=== PATIENT | female | born 1970 | race Caucasian/White ===

== ENCOUNTER → 2017-12-03 10:40 | Outpatient (POV) | payer BC, SELFPAY | PROVIDERS: Visit Provider Dermatology | DX: Z00.00 Encounter for general adult medical examination without abnormal findings (principal) ==

== ENCOUNTER 2019-08-24 19:10 | Emergency (ER) | payer BC, SELFPAY ==
[2019-08-24 19:11] VITALS: BP 167/100; PULSE 108; RESP 16; TEMP 37.2; O2SAT 99; BMI 25.8
--- NOTE | 2019-08-24 19:41 | CT_ITS ---
PROCEDURE: CT HEAD/BRAIN WO CON CLINICAL INDICATION: cold/ tingling in LT shoulder to arm Numbness and tingling in the left side of the head COMPARISON: No exams were available for comparison TECHNIQUE: Axial images obtained. All CT scans at the facility use one or more dose reduction, viz: automated exposure control, ma/kV adjustment per patient size (including targeted exams where dose is matched to indication, i.e. head), or iterative reconstruction technique. FINDINGS: No midline shift, mass effect, intracranial hemorrhage, hydrocephalus, or extra-axial fluid collection is evident. The calvarium has an unremarkable appearance. There is some mild opacification of the left mastoid sinus there is mucosal thickening in the ethmoid sinuses IMPRESSION: 1. No acute intracranial findings. 2. Mild sinus disease Dictated by: Ceferino Hung MD 08/25/2019 07:55 Electronically signed by Ceferino Hung MD in [place] 08/25/2019 07:55
--- NOTE | 2019-08-24 19:41 | CT_ITS ---
PROCEDURE: CT CERVICAL SPINE WO CON CLINICAL INDICATION: cold/ tingling in LT shoulder to arm Left upper extremity numbness and tingling COMPARISON: No exams were available for comparison TECHNIQUE: Axial images obtained with sagittal and coronal reformats. All CT scans at the facility use one or more dose reduction, viz: automated exposure control, ma/kV adjustment per patient size (including targeted exams where dose is matched to indication, i.e. head), or iterative reconstruction technique. Axial spiral CT scanning performed of the cervical spine beginning at the base of the skull and continuing to the upper T-spine. 3-D multiplanar reconstruction with 3-D manipulation of volumetric data set in image rendering was completed by the radiologist and/or technologist with the supervision of the radiologist on independent workstation. FINDINGS: Normal alignment. No acute fracture or dislocation. C2-C3: Unremarkable. C3-C4: Unremarkable. C4-C5: Unremarkable. C5-C6: Mild degenerative disc disease with minimal uncovertebral hypertrophy and mild bilateral foraminal narrowing. C6-C7: Degenerative disc disease with endplate hypertrophic change eccentric toward the left with left lateral recess narrowing and severe left-sided foraminal narrowing. There is borderline narrowing of the canal at this level at 11 mm. C7-T1: Unremarkable. Lung apices show a indeterminate 6 mm nodule in the right apex IMPRESSION: 1. No acute finding. 2. C5-C6: Mild degenerative disc disease with minimal uncovertebral hypertrophy and mild bilateral foraminal narrowing. 3. C6-C7: Degenerative disc disease with endplate hypertrophic change eccentric toward the left with left lateral recess narrowing and severe left-sided foraminal narrowing. There is borderline narrowing of the canal at this level at 11 mm 4. Indeterminate 6 mm right apical nodule Dictated by: Ceferino Hung MD 08/25/2019 07:59 Electronically signed by Ceferino Hung MD in [place] 08/25/2019 07:59
[2019-08-24 19:46] LABS: Microscopic, Urine URINE MICROSCOPIC (MICROSCOPIC)
--- NOTE | 2019-08-24 19:47 | XR_ITS ---
PROCEDURE: XR CHEST 2V CLINICAL HISTORY: numbeness in left arm Smoker COMPARISON: No exams were available for comparison FINDINGS: The cardiomediastinal silhouette and pulmonary vascularity are within normal limits. No lobar consolidation or collapse. There is an ill-defined opacity in the left perihilar region measuring approximately 1.9 cm. The remaining lungs are clear No acute bony abnormalities. IMPRESSION: Indeterminate left perihilar opacity. Cannot exclude developing nodule. Follow-up suggested. CT may provide further evaluation. Dictated by: Ceferino Hung MD 08/25/2019 07:24 Electronically signed by Ceferino Hung MD in [facility] 08/25/2019 07:24
[2019-08-24 19:48] LABS: Appearance,Urine CLEAR (Clear); Bilirubin,Urine Negative (Negative); Blood, Urine Negative (Negative); Color,Urine YELLOW (Yellow); Glucose,Urine (UA) Negative (Negative); Ketones,Urine Negative (Negative); Leukocyte Esterase,Urine Negative (Negative); Nitrate,Urine Negative (Negative); Protein,Urine Negative (Negative); Specific Gravity, Urine <= 1.005 (1.005-1.030); Urobilinogen,Urine 0.2 EU/dl (0.2)
[2019-08-24 19:54] LABS: Basophils # 0.1 K/mm3 (0-0.2); Basophils % 0.8 % (0.1-2.0); Eosinophils # 0.3 K/mm3 (0.0-0.4); Eosinophils % 2.7 % (0.1-12.0); Hematocrit 47.1 % (37.0-47.0); Hemoglobin 16.1 g/dL (12.2-16.2); Lymphocytes # 3.4 K/mm3 (0.7-4.5); Lymphocytes % 35.8 % (10-50); Mean Corpuscular HGB Conc 34.2 g/dL (31.8-35.4); Mean Corpuscular Hemoglobin 32.9 pg (27.0-31.2); Mean Corpuscular Volume 96.2 fl (81-99); Mean Platelet Volume 7.1 fl (7.4-10.4); Monocytes # 0.4 K/mm3 (0.1-1.0); Monocytes % 4.4 % (1.7-9.3); Neutrophils # 5.4 K/mm3 (1.8-7.8); Neutrophils % 56.4 % (37.0-80.0); Platelet Count 316 K/mm3 (142-424); Red Blood Count 4.89 M/mm3 (4.20-5.40); Red Cell Distribution Width 13.5 % (11.5-17.5); Urine Pregnancy, HCG Qual. Negative (Negative); White Blood Count 9.6 K/mm3 (4.8-10.8)
[2019-08-24 20:02] LABS: Chloride 102 mmol/L (98-107)
[2019-08-24 20:03] LABS: Potassium 3.7 mmoL/L (3.5-5.1); Sodium 138 mmol/L (136-145)
[2019-08-24 20:05] LABS: Alanine Aminotransferase 18 U/L (12-78); Aspartate Amino Transferase 33 U/L (14-36); Blood Urea Nitrogen 5 mg/dl (7-17); Creatinine Clearance Estimated 99 mL/min (50-200); Estimated Glomerular Filt Rate 77 ml/min (>60); GFR (African American) 93 ML/MIN (>60)
[2019-08-24 20:06] LABS: Albumin Level 4.5 g/dl (3.5-5.0); Albumin/Globulin Ratio 1.4 (1.1-1.8); Alkaline Phosphatase 80 U/L (38-126); Anion Gap 10.7 mEq/L (5-15); Bilirubin,Total 0.6 mg/dl (0.2-1.3); Calcium 9.6 mg/dl (8.4-10.2); Carbon Dioxide 29 mmol/L (22.0-30.0); Globulin 3.2 g/dL (1.3-3.2); Glucose 88 mg/dl (74-100); Total Protein,Serum 7.7 g/dl (6.3-8.2)
[2019-08-24 20:29] LABS: Bacteria,Urine Trace /lpf; WBC,Urine Occasional #/hpf (0-3)
[2019-08-24 20:37] LABS: Thyroid Stimulating Hormone 4.37 uIU/mL (0.465-4.68)
[2019-08-24 20:52] LABS: Troponin I < 0.01 ng/ml (0.00-0.034)
--- NOTE | 2019-08-24 20:53 | HMH.EDNEU ---
ED Disposition Clinical Impression: Cervical disc disease, Jordana's disease Disposition: Home, Self-Care Condition on Discharge: Good Instructions: Degenerative Disc Disease Additional Instructions: call pcp for close follow up Referrals: Lyndon Weaver [Primary Care Provider] - - Critical Care Critical Care Time: No Attestation: On 08/24/19, the high probability of a clinically significant, sudden or life threatening deterioration of the following system(s) required my full and direct attention, intervention and personal management. The time I documented below is in addition to time spent performing reported procedures but includes the following listed in this critical care notation. Medical Decision Making - Medical Records Medical records reviewed: Yes: I reviewed the patient's medical records. - Andrea Inquiry Pt receiving controlled substance: No Vital Signs: 08/24/19 19:11 Temperature 98.9 F Temperature Source Oral Pulse Rate [Left Radial] 108 H Respiratory Rate 16 Blood Pressure [Right Arm] 167/100 H Blood Pressure Mean [Right Arm] 122 Blood Pressure Source [Right Arm] Automatic Cuff Blood Pressure Position [Right Arm] Sitting 02 Sat by Pulse Oximetry 99 Oxygen Delivery Method Room Air - Lab Data Lab results reviewed: Yes: I reviewed the patient's lab results. Lab Results 08/24/19 19:20: Troponin I < 0.01 08/24/19 19:27: Urine Color Yellow, Urine Appearance Clear, Urine pH 7.0, Ur Specific [place] <= 1.005, Urine Protein Negative, Urine Glucose (UA) Negative, Urine Ketones Negative, Urine Blood Negative, Urine Nitrate Negative, Urine Bilirubin Negative, Urine Urobilinogen 0.2, Ur Leukocyte Esterase Negative, Urine WBC Occasional, Ur Squamous Epith Cells 3-5, Urine Bacteria Trace 08/24/19 19:27: WBC 9.6, RBC 4.89, Hgb 16.1, Hct 47.1 H, MCV 96.2, MCH 32.9 H, MCHC 34.2, RDW 13.5, Plt Count 316, MPV 7.1 L, Neut % (Auto) 56.4, Lymph % (Auto) 35.8, [place] % (Auto) 4.4, Eos % (Auto) 2.7, Baso % (Auto) 0.8, Neut # (Auto) 5.4, Lymph # (Auto) 3.4, [place] # (Auto) 0.4, Eos # (Auto) 0.3, Baso # (Auto) 0.1 08/24/19 19:27: Urine HCG, Qual Negative 08/24/19 19:27: Sodium 138, Potassium 3.7, Chloride 102, Carbon Dioxide 29, Anion Gap 10.7, BUN 5 L, Creatinine 0.80, Estimated Creat Clear 99, Estimated GFR 77, Est GFR ( Amer) 93, Glucose 88, Calcium 9.6, Total Bilirubin 0.6, AST 33, ALT 18, Alkaline Phosphatase 80, Total Protein 7.7, Albumin 4.5, Globulin 3.2, Albumin/Globulin Ratio 1.4, TSH 4.37, Thyroxine (T4) 8.0 Result diagrams: 08/24/19 19:27 08/24/19 19:27 Orders (Tests/Meds): ED MEDICATIONS Discontinued Medications Generic Name Dose Route Start Last Admin Trade Name Freq PRN Reason Stop Dose Admin Methylprednisolone Sodium Succinate 125 mg 08/24/19 21:01 Solu-Medrol 125mg/2ml Vial IV 08/24/19 21:02 ONCE ONE ORDERS Category Date Time Status CT cervical spine wo con Stat Cat Scan 08/24/19 19:[address] head/brain wo con Stat Cat Scan 08/24/19 19:41 Taken XR chest 2V Stat Exams 08/24/19 19:47 Taken TPO [Thyroid Peroxidase Antibodies] Stat Lab 08/24/19 20:59 Ordered Troponin I Q3H Lab 08/24/19 23:00 Ordered Troponin I Q3H Lab 08/25/19 02:00 Ordered - Radiology Data #1 Image(s): Chest Image Reviewed: Yes I reviewed the patient's radiology image Preliminary Findings: Normal/NAD - CT Data CT Scan: Head, C-Spine Time Received: 21:[address] Reviewed: Yes: I have viewed the radiologist's interpretation Preliminary Findings: Abnormal (see report ) - Reevaluation(s) Time: 21:09 Reevaluation #1: stable exam Neuro HPI - General Chief Complaint: Neuro Symptoms/Deficit Stated Complaint: NUMBNESS LEFT ARM.VERGO Time Seen by Provider: 08/24/19 20:00 Mode of Arrival: Ambulatory Source of Information: Patient, Medical Record Limitations: No Limitations Description of Symptoms (Recalled from ER Triage Doc. by RN): pt stated she has had a cold/tingli
[2019-08-24 21:23] VITALS: BP 154/82; PULSE 92; RESP 14; TEMP 37.2; O2SAT 98
[2019-08-26 20:32] LABS: Thyroid Peroxidase Antibodies 132 IU/mL (0-34)
== END 2019-08-24 21:25 | disposition home or self-care (01) ==
PROVIDERS: Emergency Medicine; Emergency Provider Emergency Medicine; PCP Family Medicine
DX: M50.30 Other cervical disc degeneration, unspecified cervical region (principal); E06.3 Autoimmune thyroiditis; F17.210 Nicotine dependence, cigarettes, uncomplicated
CPT/HCPCS: 70450; 71046; 72125; 80053; 81001; 81025; 84436; 84443; 84484; 85025; 86376; 96365; 96374; 99283

== ENCOUNTER 2020-02-25 16:50 | Emergency (ER) | payer BC, SELFPAY ==
[2020-02-25 17:04] VITALS: BP 143/91; PULSE 86; RESP 19; TEMP 36.6; O2SAT 98; BMI 26.3
--- NOTE | 2020-02-25 17:12 | HMH.EDUTC ---
[facility] [place] Disposition Clinical Impression: Exposure to COVID-19 virus Disposition: Home, Self-Care Condition on Discharge: Good Instructions: Preventing the Spread of Coronavirus Discharge Instructions Additional Instructions: *Monitor Temp, Over the counter Motrin or Tylenol as directed/as needed Tylenol every 4 hours and Motrin every 6 hours (as long as your family doctor has told you that you can take it) for fever or pain. and straight to ER if unable to lower temp less than 101.0 after medication given *Warm salt water gargles may help to soothe the throat *Throat Lozenges *Warm fluids like tea with honey may help to soothe the throat *Sleep elevated *Humidifier/Vaporizer *Flonase 2 sprays in each nostril daily but be aware that it may take 2-3 days before you notice improvement Follow up IMMEDIATELY for new or worsening symptoms or no Noticeable improvement over the next 48-72 hours. 911 for difficulty breathing or swallowing You was tested for today for COVID19 your test result should be back in the next 24-48 hours, you may call to the [facility] later today or tomorrow to see if your test results are back and the result [phone] [facility] hours are 9am-9pm You was given a handout with instructions for Self Quarantine and Self isolation for while you wait on test results and what to do if they are positive If you are positive the Health Dept will be contacting you also Referrals: Lyndon Weaver [Primary Care Provider] - As needed Forms: Work/School Release Time of Disposition: 17:15 Medical Decision Making - Andrea Inquiry Pt receiving controlled substance: No Andrea was queried for this patient: No Vital Signs: 02/25/20 17:04 Temperature 97.8 F Temperature Source Oral Pulse Rate [Radial] 86 Respiratory Rate 19 Blood Pressure [Right Arm] 143/91 H Blood Pressure Mean [Right Arm] 108 Blood Pressure Source [Right Arm] Automatic Cuff Blood Pressure Position [Right Arm] Sitting 02 Sat by Pulse Oximetry 98 Oxygen Delivery Method Room Air Orders (Tests/Meds): ORDERS Category Date Time Status Covid-19 Nasal PCR ([facility]) Routine Lab 02/25/20 17:00 Received [facility] HPI - General Stated complaint: Covid test Time Seen by Provider: 11/28/20 17:12 Mode of Arrival: Ambulatory Source of Information: Patient Limitations: No Limitations Description of Symptoms (Recalled from Triage Doc. by RN): covid test HEENT Symptoms (Recalled from RN notes): No Resp Symptoms (Recalled from RN notes): No Skin Symptoms (Recalled from RN notes): No MS Symptoms (Recalled from RN notes): No Functional Status (Recalled from RN notes): wnl - History of Present Illness Provider Complaint: Patient states that she was recently around coworker that just tested positive for COVID States that she isnt having any symtpoms but wants to get tested to check to see if she may have it now due to exposure - Related Data Home Medications Medication Instructions Recorded Confirmed No Known Home Medications 08/24/19 08/24/19 Allergies Allergy/AdvReac Type Severity Reaction Status Date / Time No Known Allergies Allergy Verified 08/24/19 19:40 - Worker's Comp Is this a Worker's Comp case?: No H History - Hepatitis A Screen Drug use history?: No High risk sexual behaviors?: No History of sexually transmitted infection?: No Currently employed?: No Childcare worker?: No Do you have indoor plumbing?: Yes Do you have electricity?: Yes Attestation statement:: This patient has been screened for Hepatitis A risk factors. I have reviewed the patient's past medical history: Yes Laterality Cases: Bilateral: Tonsillectomy - Social History Smoking Status: Current every day smoker # Packs/Day (cigarettes): 1 Alcohol Intake: never Occupational Status: employed ROS Obtained: Yes All systems reviewed & no additional complaints, Yes Systems reviewed as appropriate & no additional complaints - Constitutional Constitutional:
[2020-02-25 17:33] VITALS: BP 143/91; PULSE 86; RESP 19; TEMP 36.6; O2SAT 98
== END 2020-02-25 17:34 | disposition home or self-care (01) ==
PROVIDERS: Emergency Provider Nurse Practitioner; PCP Family Medicine
DX: Z20.828 Contact with and (suspected) exposure to other viral communicable diseases (principal); F17.210 Nicotine dependence, cigarettes, uncomplicated
CPT/HCPCS: 99201; U0003

== ENCOUNTER 2020-04-09 10:51 | Emergency (ER) | payer BC, SELFPAY ==
[2020-04-09 11:15] VITALS: BP 131/83; PULSE 87; RESP 14; TEMP 36.5; O2SAT 98; BMI 25.8
--- NOTE | 2020-04-09 11:55 | HMH.EDUTC ---
[facility] [place] Clinical Impression: Exposure to COVID-19 virus Disposition: Home, Self-Care Condition on Discharge: Good Instructions: DI for COVID-19 (Suspected or Confirmed ), Preventing the Spread of Coronavirus Discharge Instructions Additional Instructions: Drink plenty of fluids. Take tylenol for pain or fever. Return if you begin to have difficulty breathing. Follow up with your regular doctor. GO TO THE ER FOR ANY WORSENING SYMPTOMS Referrals: Lyndon Weaver [Primary Care Provider] - Time of Disposition: 11:58 Medical Decision Making - Medical Records Medical records reviewed: No: I reviewed the patient's medical records. - Andrea Inquiry Pt receiving controlled substance: No Vital Signs: 04/09/20 11:15 04/09/20 12:00 Temperature 97.7 F 97.7 F Temperature Source Oral Pulse Rate 87 Pulse Rate [Left Brachial] 87 Respiratory Rate 14 14 Blood Pressure 131/83 Blood Pressure [Left Arm] 131/83 Blood Pressure Mean [Left Arm] 99 Blood Pressure Source [Left Arm] Automatic Cuff Blood Pressure Position [Left Arm] Sitting 02 Sat by Pulse Oximetry 98 Oxygen Delivery Method Room Air Orders (Tests/Meds): ORDERS Category Date Time Status Covid-19 Nasal PCR ([facility]) Routine Lab 04/09/20 11:20 [place] [facility] [place] - General Stated complaint: covid test for work Time Seen by Provider: 04/09/20 11:55 Mode of Arrival: Ambulatory Source of Information: Patient Limitations: No Limitations Description of Symptoms (Recalled from Triage Doc. by RN): COVID TEST D/T EXPOSURE. DENIES SYMPTOMS HEENT Symptoms (Recalled from RN notes): No Resp Symptoms (Recalled from RN notes): No Skin Symptoms (Recalled from RN notes): No MS Symptoms (Recalled from RN notes): No Functional Status (Recalled from RN notes): WNL - History of Present Illness Provider Complaint: She is here to have a covid test done. She denies any symptoms. - Related Data Home Medications Medication Instructions Recorded Confirmed No Known Home Medications 08/24/19 08/24/19 Allergies Allergy/AdvReac Type Severity Reaction Status Date / Time No Known Allergies Allergy Verified 08/24/19 19:40 - Worker's Comp Is this a Worker's Comp case?: No [facility] History - Hepatitis A Screen Drug use history?: No High risk sexual behaviors?: No History of sexually transmitted infection?: No Currently employed?: No Childcare worker?: No Do you have indoor plumbing?: Yes Do you have electricity?: Yes Attestation statement:: This patient has been screened for Hepatitis A risk factors. I have reviewed the patient's past medical history: Yes Laterality Cases: Bilateral: Myringotomy (Ear Tubes), Tonsillectomy - Social History Smoking Status: Current every day smoker # Packs/Day (cigarettes): 1 Alcohol Intake: never Occupational Status: other ROS Obtained: Yes All systems reviewed & no additional complaints - Constitutional Constitutional: Reports system reviewed and no additional complaints, except as docu - Eyes Eyes: Reports system reviewed and no additional complaints, except as docu - ENT Ears, Nose, Mouth, and Throat: Reports system reviewed and no additional complaints, except as docu - Cardiovascular Cardiovascular: Reports system reviewed and no additional complaints, except as docu - Respiratory Respiratory: Reports system reviewed and no additional complaints, except as docu - Gastrointestinal Gastrointestingal: Reports: system reviewed and no additional complaints, except as docu Physical Exam - General General appearance: alert, in no apparent distress - Head Head exam: atraumatic, normocephalic, normal inspection - Eye Eye exam: Present: normal appearance, PERRL, EOMI - ENT ENT exam: Present: normal exam, normal oropharynx, mucous membranes moist, TM's normal bilaterally, normal external ear exam - Neck Neck exam: Present: normal inspection, full ROM, trachea midline. Ab
[2020-04-09 12:00] VITALS: BP 131/83; PULSE 87; RESP 14; TEMP 36.5; O2SAT 98
== END 2020-04-09 12:02 | disposition home or self-care (01) ==
PROVIDERS: Emergency Provider Nurse Practitioner Family; PCP Family Medicine
DX: Z20.822 Contact with and (suspected) exposure to COVID-19 (principal)
CPT/HCPCS: 99202; G0463; U0003

== ENCOUNTER → 2020-12-28 20:30 | Outpatient (CLI) | payer BC, SELFPAY | PROVIDERS: Visit Provider Nurse Practitioner Family | DX: Z20.822 Contact with and (suspected) exposure to COVID-19 (principal) | CPT/HCPCS: C9803; U0003; U0005 ==

== ENCOUNTER → 2021-01-22 19:57 | Outpatient (CLI) | payer BC, SELFPAY | PROVIDERS: Visit Provider Nurse Practitioner Family | DX: Z20.822 Contact with and (suspected) exposure to COVID-19 (principal) | CPT/HCPCS: C9803; U0003; U0005 ==

== ENCOUNTER → 2021-05-01 10:46 | Outpatient (CLI) | payer BC, SELFPAY ==
[2021-05-02 09:29] LABS: Covid-19 Nasal PCR Sendout Lex NOT DETECTED
== END ==
PROVIDERS: Visit Provider Nurse Practitioner
DX: Z20.822 Contact with and (suspected) exposure to COVID-19 (principal)
CPT/HCPCS: C9803; U0004; U0005

== ENCOUNTER 2021-11-13 12:42 | Emergency (ER) | payer BC, SELFPAY ==
[2021-11-13 13:16] VITALS: BP 150/102; PULSE 96; RESP 17; TEMP 36.7; O2SAT 98; BMI 26.6
--- NOTE | 2021-11-13 13:21 | HMH.EDUTC ---
[facility] [place] [facility] [place] Clinical Impression: Sinusitis, Otitis Disposition: Home, Self-Care Condition on Discharge: Good Instructions: DI for Sinusitis Additional Instructions: Drink plenty of fluids. Take tylenol or ibuprofen for pain or fever. Take the medications as directed. Follow up with your regular doctor. GO TO THE ER FOR ANY WORSENING SYMPTOMS Prescriptions: methylPREDNISolone [Medrol] 4 mg PO DIRECTED 6 Days #21 packet Transmission Status: Received by [facility] # Azithromycin [Z-Jeramy 250mg Tab*] 250 mg PO UD DOSE PK #6 tab Transmission Status: Received by [facility] # Referrals: Lyndon Weaver [Primary Care Provider] - Time of Disposition: 13:39 Medical Decision Making - Medical Records Medical records reviewed: No: I reviewed the patient's medical records. - Andrea Inquiry Pt receiving controlled substance: No Vital Signs: 11/13/21 13:16 11/13/21 13:45 Temperature 98.0 F 98.0 F Temperature Source Temporal Artery Scan Pulse Rate 96 H Pulse Rate [Left] 96 H Respiratory Rate 17 17 Blood Pressure 150/102 H Blood Pressure [Right Arm] 150/102 H Blood Pressure Mean [Right Arm] 118 02 Sat by Pulse Oximetry 98 - Lab Data Lab results reviewed: Yes: I reviewed the patient's lab results. [facility] [place] [facility] [place]PI - General Stated complaint: ear pain Time Seen by Provider: 11/13/21 13:21 Mode of Arrival: Ambulatory Source of Information: Patient Limitations: No Limitations Description of Symptoms (Recalled from Triage Doc. by RN): patient comes in with complaits of fluid on both ears, headache, nausea. symptoms began yesterday. patient thinks all symptoms are realted to sinus drainage HEENT Symptoms (Recalled from RN notes): Yes Resp Symptoms (Recalled from RN notes): No Skin Symptoms (Recalled from RN notes): No MS Symptoms (Recalled from RN notes): No Functional Status (Recalled from RN notes): n/a - History of Present Illness Provider Complaint: She is here with complaints of sinus congestion and sinus drainage for the past 2 days. - Related Data Previous Rx's Medication Instructions Recorded Azithromycin [Z-Jeramy 250mg Tab*] 250 mg PO UD DOSE PK #6 tab 11/13/21 methylPREDNISolone [Medrol] 4 mg PO DIRECTED 6 Days #21 11/13/21 packet Allergies Allergy/AdvReac Type Severity Reaction Status Date / Time No Known Allergies Allergy Verified 11/13/21 13:20 - Worker's Comp Is this a Worker's Comp case?: No [facility] History - Hepatitis A Screen Attestation statement:: This patient has been screened for Hepatitis A risk factors. I have reviewed the patient's past medical history: Yes Other Medical History: Reports: Thyroid Disease Laterality Cases: Bilateral: Myringotomy (Ear Tubes), Tonsillectomy - Social History Smoking Status: Current every day smoker # Packs/Day (cigarettes): 1 Alcohol Intake: never Occupational Status: other Family Hx:: Non-contributory ROS Obtained: Yes All systems reviewed & no additional complaints - Constitutional Constitutional: Reports as per HPI - Eyes Eyes: Denies eye discharge - ENT Ears, Nose, Mouth, and Throat: Reports as per HPI - Cardiovascular Cardiovascular: Denies chest pain - Respiratory Respiratory: Reports cough Physical Exam - General General appearance: alert, in no apparent distress - Head Head exam: atraumatic, normocephalic, normal inspection - Eye Eye exam: Present: normal appearance, PERRL, EOMI - ENT ENT exam: Present: normal exam, normal oropharynx, mucous membranes moist, TM's normal bilaterally, normal external ear exam - Neck Neck exam: Present: normal inspection, full ROM, trachea midline. Absent: meningismus, lymphadenopathy - Chest Chest inspection: Present: normal inspection, symmetric chest wall rise. Absent: tenderness - Respiratory Respiratory exam: Present: normal lung sounds bilaterally. Absent: respiratory distress - Cardiovascula
[2021-11-13 13:45] VITALS: BP 150/102; PULSE 96; RESP 17; TEMP 36.7
== END 2021-11-13 13:45 | disposition home or self-care (01) ==
PROVIDERS: Emergency Provider Nurse Practitioner Family; PCP Family Medicine
DX: J32.9 Chronic sinusitis, unspecified (principal); H66.90 Otitis media, unspecified, unspecified ear
CPT/HCPCS: 99212; G0463

== ENCOUNTER 2022-11-09 12:26 | Emergency (ER) | payer MEDICARE, SELFPAY ==
[2022-11-09 12:37] VITALS: BP 165/101; PULSE 109; RESP 18; TEMP 36.7; O2SAT 98; BMI 26.6
--- NOTE | 2022-11-09 13:04 | HMH.EDGENADL ---
Discharge Plan Disposition Patient Disposition: Home, Self-Care Condition: Good Prescriptions Prescriptions: No Action atorvastatin 40 mg tablet 40 mg PO DAILY levothyroxine 50 mcg tablet 50 mcg PO DAILY pantoprazole 40 mg tablet,delayed release (DR/EC) 40 mg PO DAILY Referrals Follow up/Referrals: Lyndon Weaver [Primary Care Provider] - See instructions Activity Restrictions/Add. Instructions Additional Instructions/Restrictions: Please follow-up with your primary care provider. Please return to the emergency department if you develop any new or worsening symptoms or become concerned for your health. As we discussed, plan to follow-up with your primary care provider to discuss possible MRI imaging. Recommend that you return to the emergency department should you have any severe chest pain, shortness of breath or difficulty breathing. Clinical Impressions Clinical Impression: Numbness and tingling, Right arm weakness Discharge ED Provider: Huan Delgado Adult HPI General Chief complaint: Extremity Problem,Nontraumatic Stated complaint: jaw pain,arms tingling Time Seen by Provider: 11/09/22 13:01 Mode of Arrival: Ambulatory Limitations: No Limitations Description of Symptoms (Recalled from ER Triage Doc. by RN): Pt. states she has bilateral arm numbness and tingling that radiaites into her jaw since yesterday. She states she has had some periods of nausea as well. History of Present Illness HPI narrative: Patient is a 52-year-old female with history of hypothyroidism, hyperlipidemia presenting to the emergency department with multiple complaints including 1 day history of subjective weakness in the right upper extremity, new numbness and tingling in the left upper extremity as well as the left jaw. History was conducted with the patient at bedside. Patient reports that she has been symptomatic in the right upper extremity for the past year, states that she has had subjective weakness. Initially felt that she had carpal tunnel, although she does not work at a desk or with computers. Patient states she feels weak when she is gripping things. She has also had some intermittent numbness and tingling of the right upper extremity. In the left upper extremity, patient has now had new onset numbness and tingling of the left forearm as well as the left jaw that is new today. She denies any chest pain, shortness of breath or difficulty breathing, nausea, vomiting. Denies any recent falls, injuries. She denies any significant history of neck pain. Denies abdominal pain, nausea, vomiting. Patient states that she does have a significant family history of cardiac disease, which is why she wanted to be evaluated in the emergency department today. Related Data Home Medications Medication Instructions Recorded Confirmed atorvastatin 40 mg tablet 40 mg PO DAILY Cholesterol 11/09/22 11/09/22 levothyroxine 50 mcg tablet 50 mcg PO DAILY Supplement 11/09/22 11/09/22 pantoprazole 40 mg tablet,delayed 40 mg PO DAILY gerd 11/09/22 11/09/22 release Allergies Allergy/AdvReac Type Severity Reaction Status Date / Time No Known Allergies Allergy Verified 11/09/22 12:[address] [facility] Disclaimer: The information contained in this section may have been updated after the patient was seen, as this information can be updated by other users. Medical History (Updated 11/09/22 @ 16:07 by Galo Minor MD) Dilation of esophagus GERD (gastroesophageal reflux disease) Hyperlipemia Hypothyroid Surgical History (Updated 11/09/22 @ 12:36 by Helena Jenkins RN) H/O unilateral oophorectomy History of esophagogastroduodenoscopy (EGD) Family History (Updated 11/09/22 @ 12:36 by Helena Jenkins RN) Other No significant family history Social History (Updated 11/09/22 @ 12:36 by Helena Jenkins RN) Smoking Status: Current every day smoker alcohol intake: current current occupational status: othe
[2022-11-09 13:10] LABS: Basophils % 0.4 % (0.1-2.0); Eosinophils # 0.1 K/mm3 (0.0-0.4); Eosinophils % 1.5 % (0.1-12.0); Hematocrit 45.5 % (37.0-47.0); Hemoglobin 14.4 g/dL (12.2-16.2); Lymphocytes # 1.9 K/mm3 (0.7-4.5); Lymphocytes % 23.6 % (10-50); Mean Corpuscular HGB Conc 31.6 g/dL (31.8-35.4); Mean Corpuscular Volume 95.1 fl (81-99); Mean Platelet Volume 7.8 fl (7.4-10.4); Monocytes # 0.4 K/mm3 (0.1-1.0); Monocytes % 4.6 % (1.7-9.3); Neutrophils # 5.8 K/mm3 (1.8-7.8); Neutrophils % 69.9 % (37.0-80.0); Platelet Count 271 K/mm3 (142-424); Red Blood Count 4.78 M/mm3 (4.20-5.40); Red Cell Distribution Width 14.2 % (11.5-17.5); White Blood Count 8.2 K/mm3 (4.8-10.8)
[2022-11-09 13:15] LABS: Alanine Aminotransferase 23 U/L (12-78); Albumin Level 4.2 g/dl (3.5-5.0); Albumin/Globulin Ratio 1.3 (1.1-1.8); Alkaline Phosphatase 78 U/L (38-126); Aspartate Amino Transferase 28 U/L (14-36); Bilirubin,Total 0.4 mg/dl (0.2-1.3); Blood Urea Nitrogen 12 mg/dl (7-17); Carbon Dioxide 25 mmol/L (22.0-30.0); Chloride 106 mmol/L (98-107); Creatinine Clearance Estimated 111 mL/min (50-200); Estimated Glomerular Filt Rate 88 ml/min (>60); GFR (African American) 106 ML/MIN (>60); Globulin 3.2 g/dL (1.3-3.2); Glucose 132 mg/dl (74-100); Sodium 139 mmol/L (136-145); Total Protein,Serum 7.4 g/dl (6.3-8.2)
[2022-11-09 13:27] LABS: Troponin I < 0.01 ng/ml (0.00-0.034)
--- NOTE | 2022-11-09 13:28 | ECG_ITS ---
APPROVED REPORT Exam: Resting ECG HR:92 bpm ECG Measurements Heart Rate 92 AXES TX 138 P 62 QRSd 80 QRS 20 QT 360 T 43 QTc 409 Conclusion SINUS RHYTHM POSSIBLE LEFT ATRIAL ENLARGEMENT [-0.1mV P-WAVE IN V1/V2] LOW QRS VOLTAGE IN PRECORDIAL LEADS [QRS DEFLECTION < 1.0 mV IN CHEST LEADS] POSSIBLE RIGHT VENTRICULAR CONDUCTION DELAY [RSR (QR) IN V1/V2] SEPTAL MYOCARDIAL INFARCTION , OF INDETERMINATE AGE [40+ ms Q WAVE IN V1/V2] ABNORMAL ECG UNCONFIRMED REPORT Electronically signed by : Kyle Hernandes MD 11/10/2022 14:01:59
[2022-11-09 13:30] VITALS: BP 133/81; PULSE 87; RESP 18; O2SAT 97
--- NOTE | 2022-11-09 13:35 | PC.NURSE ---
Rounded on patient; nothing needed at this time. Call wells within reach of patient
[2022-11-09 14:00] VITALS: BP 120/79; PULSE 81; RESP 19; O2SAT 96
[2022-11-09 14:30] VITALS: BP 123/82; PULSE 74; RESP 17; O2SAT 96
[2022-11-09 15:00] VITALS: BP 128/74; PULSE 79; RESP 18; O2SAT 95
[2022-11-09 15:40] LABS: Troponin I < 0.01 ng/ml (0.00-0.034)
--- NOTE | 2022-11-09 15:52 | PC.NURSE ---
Rounded on patient, patient requesting a drink MD notified drink provided to patient. Call wells within reach of patient
[2022-11-09 16:13] VITALS: BP 139/90; PULSE 89; RESP 16; TEMP 36.6; O2SAT 95
== END 2022-11-09 16:15 | disposition home or self-care (01) ==
PROVIDERS: Emergency Medicine; Emergency Provider Emergency Medicine; PCP Family Medicine
DX: R53.1 Weakness (principal); R20.0 Anesthesia of skin; R20.2 Paresthesia of skin; E03.9 Hypothyroidism, unspecified; E78.5 Hyperlipidemia, unspecified; K21.9 Gastro-esophageal reflux disease without esophagitis; F17.200 Nicotine dependence, unspecified, uncomplicated
CPT/HCPCS: 80053; 82330; 84484; 85025; 93005; 99285

== ENCOUNTER 2024-09-02 13:59 | Outpatient (CLI) | payer BC, SELFPAY ==
[2024-09-02 13:07] LABS: Basophils # 0.1 K/mm3 (0-0.2); Basophils % 1.1 % (0.1-2.0); Eosinophils # 0.5 Kmm3 (0.0-0.4); Eosinophils % 6.9 % (0.1-12.0); Hematocrit 40.6 % (37.0-47.0); Hemoglobin 12.7 g/dL (12.2-16.2); Immature Granulocytes # 0.02 10^3uL; Immature Granulocytes % 0.3 %; Lymphocytes # 2.1 K/mm3 (0.7-4.5); Lymphocytes % 28.8 % (10-50); Mean Corpuscular HGB Conc 31.3 g/dL (31.8-35.4); Mean Corpuscular Hemoglobin 27.5 pg (27.0-31.2); Mean Corpuscular Volume 88.1 fl (81-99); Monocytes # 0.5 K/mm3 (0.1-1.0); Monocytes % 6.3 % (1.7-9.3); Neutrophils # 4.2 K/mm3 (1.8-7.8); Neutrophils % 56.6 % (37.0-80.0); Nucleated Red Blood Cells # 0 10^3/uL; Nucleated Red Blood Cells % 0 %; Platelet Count 315 K/mm3 (142-424); Red Blood Count 4.61 M/mm3 (4.20-5.40); Red Cell Distribution Width 17.7 % (11.5-17.5); Red Cell Distribution Width-SD 56.4 fL; White Blood Count 7.4 K/mm3 (4.8-10.8)
[2024-09-02 13:27] LABS: Alanine Aminotransferase 23 U/L (12-78); Albumin Level 4.1 g/dl (3.5-5.0); Albumin/Globulin Ratio 1.6 (1.1-1.8); Alkaline Phosphatase 84 U/L (38-126); Anion Gap 9.2 mEq/L (5-15); Aspartate Amino Transferase 27 U/L (14-36); Bilirubin,Total 0.5 mg/dl (0.2-1.3); Blood Urea Nitrogen 5 mg/dl (7-17); Calcium 8.9 mg/dl (8.4-10.2); Carbon Dioxide 27 mmol/L (22.0-30.0); Chloride 107 mmol/L (98-107); Chol/HDL Ratio 2.8 (1-3.5); Cholesterol 151 mg/dl (140-200); Estimated Glomerular Filt Rate 75 ml/min (>60); GFR (African American) 91 ML/MIN (>60); Globulin 2.5 g/dL (1.3-3.2); Glucose 72 mg/dl (74-100); HDL Cholesterol 53 mg/dl (40-60); Potassium 5.2 mmoL/L (3.5-5.1); Sodium 138 mmol/L (136-145); Total Protein,Serum 6.6 g/dl (6.3-8.2); Triglycerides 105 mg/dl (30-150); VLDL Cholesterol 21 mg/dL (0-40)
[2024-09-02 13:38] LABS: Direct LDL Cholesterol 68.19 mg/dL (100-129)
[2024-09-02 13:52] LABS: Free T4 (Free Thyroxine) 1.09 ng/dl (0.78-2.19)
[2024-09-02 13:58] LABS: Thyroid Stimulating Hormone 2.71 uIU/mL (0.465-4.68)
[2024-09-02 17:50] LABS: Hemoglobin A1C 5.3 % (4.0-6.0)
[2024-09-02 19:32] LABS: HIV Combo NEGATIVE (Negative)
[2024-09-02 19:40] LABS: Hepatitis C Ab Qual. W/ RFX NEGATIVE (Negative)
[2024-09-03 08:16] LABS: Thyroid Peroxidase Antibodies 136 IU/mL (0-34)
== END 2024-09-02 23:59 | disposition home or self-care (01) ==
LOC: LAB.DROPOF 14:00
PROVIDERS: PCP Internal Medicine; Visit Provider Internal Medicine
DX: Z00.00 Encounter for general adult medical examination without abnormal findings (principal); Z13.29 Encounter for screening for other suspected endocrine disorder; Z13.220 Encounter for screening for lipoid disorders; Z11.4 Encounter for screening for human immunodeficiency virus [HIV]; Z13.1 Encounter for screening for diabetes mellitus; Z11.59 Encounter for screening for other viral diseases; E06.3 Autoimmune thyroiditis
CPT/HCPCS: 80053; 80061; 83036; 84439; 84443; 85025; 86376; 86803; 87389

== ENCOUNTER 2024-09-16 07:20 | Outpatient (CLI) | payer OTHER, SELFPAY ==
--- NOTE | 2024-09-16 07:30 | CT_ITS ---
FINAL REPORT TECHNIQUE: Thin section axial images were obtained through the lungs using a low-dose technique per lung cancer screening protocol. Reconstruction images were obtained using the axial data. Exam was performed using dose reduction technique. CLINICAL HISTORY: lung cancer screening smoker, 1 ppd x 27 years FINDINGS: CTDL vol: 2.90 DLP: 103.68 Lungs: There is a 3 mm subpleural left upper lobe nodule well-seen on series 4, image 16. There is a 4 mm right apical nodule well-seen on image 13. There is evidence of old granulomatous disease. Lymph nodes: No thoracic lymphadenopathy. Mediastinum: Heart size is normal. Prominent coronary artery calcification is identified. Pleura/pericardium: No pleural or pericardial effusion. Other: No acute abnormality in the upper abdomen. IMPRESSION: Bilateral pulmonary nodules. Modifier S: Prominent coronary artery calcification. Lung RADS: 2S Recommendation: Recommend low dose chest CT in 12 months. Reviewed, Interpreted and Dictated by Shanna Raman MD Transcribed by Hannah Pérez Authenticated and [facility]
== END 2024-09-16 23:59 | disposition home or self-care (01) ==
LOC: RAD 07:21
PROVIDERS: PCP Internal Medicine; Visit Provider Internal Medicine
DX: I25.10 Atherosclerotic heart disease of native coronary artery without angina pectoris (principal); R91.8 Other nonspecific abnormal finding of lung field; F17.209 Nicotine dependence, unspecified, with unspecified nicotine-induced disorders; Z12.2 Encounter for screening for malignant neoplasm of respiratory organs
CPT/HCPCS: 71271

== ENCOUNTER 2025-02-21 12:41 | Outpatient (RCR) | payer OTHER, SELFPAY ==
--- NOTE | 2025-02-21 15:33 | [facility].PTOPEV ---
PT Evaluation Rehab PT Outpatient Evaluation Start: 02/21/25 12:52 Freq: Status: Active Protocol: Document 02/21/25 12:52 WALTER (Rec: 02/21/25 15:17 WALTER [id number]) E-signed By Ingris Painter, PT Outpatient Therapy Subjective History Subjective History This is an initial PT evaluation for 54 y/o, Melodie Sousa, who presents to PT with referral for cervical pain with radiculopathy. Pt reports her neck pain started back in 2019 but was primarily on the left side . Pt now has been having R-sided neck pain and RUE burning for ~ 2 months. Pt reports she has an area of intermittent numbness in her neck down to right shoulder and burning sensation that radiates from her neck to her wrist. Pt denies any n/v, b/b dysfunction, saddle anesthesia, dizziness, BLE/BUE weakness, or diplopia. Pt's pain is worse at night when sleeping, when first waking up, and when looking down. Pt reports she works at a [employer] and wishes to seek education on how to improve her work ergonomics to prevent neck pain. Pt denies any recent accident/injury leading to her neck pain. Pt finds relief from her symptoms when using anti-inflammatory medication, stretching, being active, and using heat. Chief complaint: Right sided neck pain with RUE radiculopathy. Occupation: Office job at computer. Imaging: No recent cervical imaging performed. Pt had a cervical CT in 2019 that showed degenerative cervical spine disease with end plate hypertrophic changes, left lateral recess narrowing, and severe left-sided foraminal narrowing. New diagnosis of No cancer in past 12 months? Chief Complaint Pain,Paresthesia Symptom Type Ache,Burning,Numbness,Tingling,Shooting Symptoms Relieved By Heat,Prescription Meds,Activity Symptoms Aggravated Supine,Sitting By Prior Functional None Limitations Current Functional Reaching,Desk Work/Reading,Sleeping,Standing,Sitting Limitations Symptom Description Constant but Variable Level of pain today 4 (0-10) Pain scale - at its 3 best (0-10) Pain scale - at its 8 worst (0-10) Cervical Eval Palpation Cervical Muscles R Cervical Paraspinal,R Suboccipital,R Upper Trapezius, L Upper Trapezius,R Thoracic Paraspinals,L Thoracic Paraspinals Cervical/Thoracic Tenderness,Muscle Guarding Palpation Findings Posture Head/C-Spine Posture Neutral Position Sitting Position Head/C-Spine Posture Neutral Position Standing Position Flexibility Deficits Upper Trapezius (R) Mild Tightness,(L) Mild Tightness Muscle Length Levaetor Scapulae (R) Mild Tightness,(L) Mild Tightness Muscle Length Pectoralis Major (R) Mild Tightness,(L) Mild Tightness Muscle Length Passive Joint Mobility Cervical PIVM Dec: R C3/4 R C4/5 R C5/6 R C6/7 AROM Cervical Spine WNL Extension Active Range of Motion ( degrees) Cervical Spine WNL Flexion Active Range of Motion (degrees) Cervical Spine Right 30 Lateral Flexion Active Range of Motion (degrees) Cervical Spine Left 35 Lateral Flexion Active Range of Motion (degrees) Cervical Spine Right 45 Rotation Active Range of Motion ( degrees) Cervical Spine Left 55 Rotation Active Range of Motion ( degrees) MMT Bilateral Deltoid (C5) 4+ Good+ Biceps Brachii 4+ Good+ Strength Grade Wrist Extension 4+ Good+ Strength Grade Triceps Brachii 4+ Good+ Strength Grade Wrist Flexion 4+ Good+ Strength Grade Altered Sensation Right Upper extremity C4,C5,C6,C7,C8 Dermatomes Comment Intact to ight touch Special Test C-Spine Foraminal Negative Left,Negative Right Compression ( [place]) Test C-spine Verterbral Central P/A Ethel,Right P/A Ethel Accessory Movements that Elicit Symptoms C-Spine Foraminal Positive Distraction Test C-Spine Compression Negative Left,Negative Right Test Neck Disability Index Neck Disability Index Section 1: Pain The pain is moderate at the moment Intensity Section 2: Personal I can look after myself normally but it causes extra Care (washing, pain dressing, etc.) Section 3: Lifting Pain prevents me lifting heavy weights off the floor, but I can manage Section 4: Reading I can read as much as I want with moderate pain in my neck Section 5: Headaches I have moderate headaches, which come infrequently Section 6: I can concentrate fully when I want to with no Concentration difficulty Section 7: Work I cannot do my usual work Section 8: Driving I can drive my car as long as I want with moderate pain in my neck Section 9: Sleeping My sleep is midly disturbed (1-2 hrs sleepless) Section 10: I am able to engage in all my recreation activities Recreation with some pain in NDI Score 17 Miscellaneous Dx PT Eval Objective Objective Nerve tensioning: - median nerve: + - radial nerve: + - ulnar nerve: - Manual distraction: relieved symptoms Suboccipital release: relieved symptoms Outpatient Therapy Assessment Impairments Problems/ Palpation Tenderness,Impaired Range of Motion,Impaired Impairmments Strength,Impaired Sitting,Impaired Recreational Activities,Impaired Desk/Computer Activities,Subjective C/O Pain Prognosis Rehab Potential Good Comment Pt presents with cervical pain with radiating RUE pain. Pt's chief complaint of burning in RUE was produced with median and radial nerve tensioning. Pt also was 3/ 4 TTP R cervical paraspinals and demo'd muscle guarding with R UPAs from C6-C4. Pt found relief in her symptoms with HEP tasks, suboccipital release, and manual cervical distraction. Pt would benefit from skilled PT to address neck pain and improve QOL. PT provided pt with HEP ( chin tucks, scap squeezes, pec stretch, UT stretch, median nerve glide, radial nerve glide.) Pt demo'd understanding to all HEP tasks. Clinical Impression Consistent with Yes Diagnosis PT Patient Goals PT Patient Goals PT Short Term In 4 weeks, pt will: Patient Goals 1) Verbalize compliance with home exercise program to improve self-maintenance of symptoms. 2) Verbalize 48-hour pain average (worst/best/current) of 3/10 3) Decrease cervical paraspinal TTP to 1/4 TTP to decrease symptom severity. 4) Tolerate one 10 min moderate intensity endurance task (ex: bike) 5) Improve NDI to 15 points to decrease disability from neck pain and improve QOL. 6) Verbalize feeling at least 45% improved in symptoms since initial PT evaluation. 7) Improve cervical AROM by 5 degrees in affected planes to improve functional ROM for daily tasks. PT Fpc Patient 1) Verbalize adherence with home exercise program to Goals maximize self-maintenance of symptoms upon d/c from PT POC. 2) Verbalize 48-hour pain average (worst/best/current) of 1-2/10. 3) Improve BUE strength to 5/5 MMT grade to improve daily functioning. 4) Improve NDI to at most 10 points to decrease disability from neck and improve QOL. 5) Improve cervical AROM to WNL to improve functional ROM for daily tasks. 6) Verbalize feeling at least 90% improved in symptoms since initial PT evaluation. Outpatient Therapy Plan of Care Treatment Plan May Include Therapeutic Exercise Yes Including Home Exercise Program Manual Therapy Yes Techniques Neuromuscular Re- Yes education Therapeutic Yes Activities to Return to Previous Functional/Work Level Gait Training Yes ADL/Self Care Yes Education Mechanical Traction Yes Dry Needling Yes Thermal Modalities Yes Electrical Yes Stimulation Ultrasound/ Yes Phonophoresis Iontophoresis Yes Orthotics/Bracing/ Yes Splinting Massage Yes Eval/Re-Eval Yes Frequency Times per week 2x weekly Duration Number of Weeks 6-8 weeks Addendums This patient is a No candidate for social or vocational rehab ? Patient/Guardian Yes verbally acknowledges understanding of treatment program and consents to further treatment? Patient/Guardian Yes verbally acknowledges understanding of diagnosis, prognosis and goals for treatment? Eval Complexity PT Charges 82159 - Moderate Complexity Shoulder/Elbow Eval Shoulder Objective Measurements Elbow Objective Measurements PHYSICIAN CERTIFICATION: I certify the specified therapy services for Melodie Sousa are required, authorized, and reviewed every 30 days.
== END 2025-02-21 23:59 | disposition home or self-care (01) ==
LOC: PT 12:41
PROVIDERS: PCP Internal Medicine; Visit Provider Internal Medicine
DX: M54.12 Radiculopathy, cervical region (principal); M54.2 Cervicalgia
CPT/HCPCS: 97162